=== PATIENT | male | born 1985 | race Caucasian/White ===

== ENCOUNTER 2016-05-30 20:27 | Observation (INO) | payer OTHER ==
[2016-05-30 20:29] VITALS: BMI 24.4
--- NOTE | 2016-05-30 21:07 | ED PDOC ---
Arrival/HPI - General Chief Complaint: Shortness Of Breath Time Seen by Provider: 05/30/16 20:55 Historian: Patient - History of Present Illness Narrative History of Present Illness (Text): 05/30/16 21:06 Luke Hernandez is a 30 year old male, whose past medical history includes anemia , who presents to the Emergency department sent by PMD for further evaluation and admission to the hospital. Patient with a history of continued illness since December. Patient had been diagnosed with anemia at that time for which he was admitted to [facility] for further evaluation. Patient was treated for anemia, evaluated, transfused, and discharged home. Patient on follow-up was diagnosed with possible early pneumonia and given outpatient antibiotics. Patient was feeling better for a while until recently when he began experiencing generalized malaise and cough. Patient was seen by his PMD and had an outpatient CT scan study which was significant for multiple opacities and other findings. Patient denies any fever or chills but does complaining of some occasional chest discomfort and dyspnea on exertion. Patient was referred this evening to the Emergency department for further evaluation. PMD: Dr. Brown Time/Duration: > month Symptom Onset: Gradual Symptom Course: Unchanged Activities at Onset: Rest, Light Context: Home Past Medical History - Provider Review Nursing Documentation Reviewed: Yes - Infectious Disease Hx of Infectious Diseases: None - Psychiatric Hx Substance Use: No - Anesthesia Hx Anesthesia: No Hx Anesthesia Reactions: No Hx Malignant Hyperthermia: No Family/Social History - Physician Review Nursing Documentation Reviewed: Yes Family/Social History: No Known Family HX Smoking Status: Never Smoked Hx Alcohol Use: No Hx Substance Use: No Allergies/Home Meds Allergies/Adverse Reactions: Allergies No Known Allergies Allergy (Verified 05/30/16 20:55) Review of Systems - Physician Review All systems were reviewed & negative as marked: Yes - Review of Systems Constitutional: Other (+generalized malaise) Eyes: Normal ENT: Normal Respiratory: Cough Cardiovascular: Chest Pain, MILLER Gastrointestinal: Normal. absent: Abdominal Pain, Diarrhea, Nausea, Vomiting Genitourinary Male: Normal. absent: Dysuria, Frequency, Hematuria, Urinary Output Changes Musculoskeletal: Normal. absent: Back Pain, Neck Pain Skin: Normal. absent: Rash Neurological: Normal. absent: Headache, Dizziness Endocrine: Normal Hemo/Lymphatic: Normal Psychiatric: Normal Physical Exam Vital Signs Reviewed: Yes Vital Signs Temp Pulse Resp BP Pulse Ox 05/30/16 20:44 18 05/30/16 20:29 97.9 F 89 18 127/73 100 05/30/16 20:27 98.3 F 85 16 145/88 100 Temperature: Afebrile Blood Pressure: Normal Pulse: Regular Respiratory Rate: Normal Appearance: Positive for: Well-Appearing, Non-Toxic, Comfortable Pain Distress: None Mental Status: Positive for: Alert and Oriented X 3 - Systems Exam Head: Present: Atraumatic, Normocephalic Pupils: Present: PERRL Extroacular Muscles: Present: EOMI Conjunctiva: Present: Other (Pale conjunctiva) Mouth: Present: Moist Mucous Membranes Neck: Present: Normal Range of Motion Respiratory/Chest: Present: Clear to Auscultation, Good Air Exchange. No: Respiratory Distress, Accessory Muscle Use Cardiovascular: Present: Regular Rate and Rhythm, Normal S1, S2. No: Murmurs Abdomen: Present: Normal Bowel Sounds. No: Tenderness, Distention, Peritoneal Signs Back: Present: Normal Inspection Upper Extremity: Present: Normal Inspection. No: Cyanosis, Edema Lower Extremity: Present: Normal Inspection. No: Edema Neurological: Present: GCS=15, CN II-XII Intact, Speech Normal Skin: Present: Warm, Dry, Pale. No: Rashes Psychiatric: Present: Alert, Oriented x 3, Normal Insight, Normal Concentration Medical Decision Making ED Course and Treatment: 05/30/16 21:07 Impression: 30 year old male referred for further evaluation of continued illness/ generalized malaise and cough for the past few months. Differential Diagnosis include but are not limited to: pneumonia vs. anemia Plan: -- EKG -- Chest X-ray -- Labs, blood type and screen, ABG, blood culture -- IV fluids -- Duonebs -- Reassess and disposition Prior Visits: Notes and results from previous visits were reviewed. On 05/29/2016, pt had an outpatient CT Chest performed which showed multiple bilateral pulmonary nodules as well as irregular opacitites in both lower lobes , non-specific. Consider neoplastic or infectious etiologies. Progress Notes: Reviewed EKG, NSR at 78 bpm. Sinus arrhythmia. No acute changes. 05/30/16 22:32 Reviewed radiology, Chest X-ray shows questionable left lower lobe infiltrate. 05/30/16 22:44 Reviewed labs, hgb: 7.3, hematocrit: 20.7. Will transfuse pt. Case discussed with Dr. Lr, who is aware and agrees with plan. Accepts pt in to hospitalist service. Pt will be admitted to [facility] for pneumonia and anemia. - Lab Interpretations Lab Results: 05/30/16 21:18 05/30/16 21:18 Lab Results 05/30/16 21:24: pCO2 41, pO2 88.0, HCO3 27.2, ABG pH 7.43, ABG Total CO2 28.5 H , ABG O2 Saturation 98.2 H, ABG Base Excess 2.6, ABG Potassium 3.3 L, Sodium 139.0, Chloride 107.0, Glucose 101, Lactate 0.4 L, FiO2 21.0, Arterial Blood Potassium 3.3 L 05/30/16 21:18: WBC 3.5 L, RBC 2.46 L, Hgb 7.3 L, Hct 20.7 L*, MCV 84.1, MCH 29.7, MCHC 35.3, RDW 14.8 H, Plt Count 244, MPV 9.8, PT 12.3 H, INR 1.14 H, APTT 27.5, Sodium 138, Chloride 99, Potassium 4.2, Carbon Dioxide 30, Anion Gap 13, BUN 20, Creatinine 1.1, Est GFR ( Amer) > 60, Est GFR (Non-Af Amer) > 60, Random Glucose 102, Calcium 9.0, Total Bilirubin 1.3, AST 28, ALT 31, Alkaline Phosphatase 67, Total Protein 8.4 H, Albumin 4.2, Globulin 4.3, Albumin /Globulin Ratio 1.0 L, Blood Type A POSITIVE, Antibody Screen Negative, Crossmatch See Detail, BBK History Checked No verified bt I have reviewed the lab results: Yes - RAD Interpretation Narrative RAD Interpretations (Text): Chest X-ray shows questionable left lower lobe infiltrate. Radiology Orders: 05/30/16 21:08 CHEST PORTABLE [RAD] Stat Unified Communications Architect: ED Physician, Radiologist - EKG Interpretation Interpreted by ED Physician: Yes Type: 12 lead EKG - Medication Orders Current Medication Orders: Sodium Chloride (Sodium Chloride 0.9%) 1,000 mls @ 100 mls/hr IV .Q10H JUN Last Admin: 05/30/16 21:26 Dose: 100 MLS/HR eMAR Start Stop Document 05/30/16 21:26 SB (Rec: 05/30/16 21:26 SB [id number]) Intravenous Solution Start Date 05/30/16 Start Time 21:26 End Date 05/30/16 Azithromycin (Zithromax 500mg In Ns) 250 mls @ 166.667 mls/hr IV STAT STA PRN Reason: Protocol Stop: 05/31/16 00:01 Ceftriaxone Sodium (Rocephin 1 Gram Ivpb) 100 mls @ 200 mls/hr IV ONCE STA PRN Reason: Protocol Stop: 05/30/16 23:01 Discontinued Medications Albuterol/Ipratropium (Duoneb 3 Mg/0.5 Mg (3 Ml) Ud) 3 ml IH ONCE STA Stop: 05/30/16 21:47 Last Admin: 05/30/16 21:56 Dose: 3 ML - Scribe Statement The provider has reviewed the documentation as recorded by the Shantel Baker Provider Attestation: All medical record entries made by the Silvioibe were at my direction and personally dictated by me. I have reviewed the chart and agree that the record accurately reflects my personal performance of the history, physical exam, medical decision making, and the department course for this patient. I have also personally directed, reviewed, and agree with the discharge instructions and disposition. Disposition/Present on Arrival - Present on Arrival Any Indicators Present on Arrival: No History of DVT/PE: No History of Uncontrolled Diabetes: No Urinary Catheter: No History of Decub. Ulcer: No History Surgical Site Infection Following: None - Disposition Have Diagnosis and Disposition been Completed?: Yes Diagnosis: Pneumonia, Anemia Disposition: HOSPITALIZED Disposition Time: 22:55 Patient Plan: Admission Patient Problems: Current Active Problems Problem Status Diagnosed Anemia Acute Pneumonia Acute Condition: GOOD Referrals: Dinora Brown MD [Primary Care Provider] - Follow up with primary
[2016-05-30] MEDS: Sodium Chloride 0.9% 1,000 ML IV SCH (21:26)
[2016-05-30 21:29] LABS: ARTERIAL BLOOD GAS HCO3 27.2 mmol/L (21-28); ARTERIAL BLOOD GAS PH 7.43 (7.35-7.45)
[2016-05-30] MEDS ORDERED: Albuterol-Ipratrop 3 mg / 0.5 (3 ml) UD IH STA (21:46)
[2016-05-30 21:55] LABS: MEAN CELL VOLUME 84.1 fL (80.0-105.0); MEAN CORPUSCULAR HEMOGLOBIN 29.7 pg (25.0-35.0); MEAN CORPUSCULAR HGB CONC 35.3 g/dl (31.0-37.0); MEAN PLATELET VOLUME 9.8 fl (7.0-11.0); RED CELL DISTRIBUTION WIDTH 14.8 % (11.5-14.5); WHITE BLOOD COUNT 3.5 10^3/ul (4.5-11.0)
[2016-05-30 21:56] LABS: ALKALINE PHOSPHATASE 67 U/L (38-133); ALT/SGPT 31 U/L (7-56); AST/SGOT 28 U/L (15-59); BILIRUBIN,TOTAL 1.3 mg/dL (0.2-1.3); BLOOD UREA NITROGEN 20 mg/dL (7-21); CARBON DIOXIDE 30 mmol/L (21-33); CHLORIDE 99 mmol/L (98-107); GFR AFRICAN-AMERICAN > 60; GLUCOSE,RANDOM 102 mg/dL (70-110); POTASSIUM 4.2 mmol/L (3.6-5.0); SODIUM 138 mmol/L (132-148); TOTAL PROTEIN 8.4 g/dL (5.8-8.3)
[2016-05-30 22:02] LABS: HEMATOCRIT 20.7 % (42.0-52.0)
[2016-05-30 22:05] LABS: INR 1.14 (0.93-1.08); PARTIAL THROMBOPLASTIN TIME 27.5 Seconds (23.7-30.8)
[2016-05-30] MEDS ORDERED: cefTRIAXone 1 gm 100 ML IV STA (22:32)
[2016-05-30] MEDS ORDERED: Azithromycin 500MG/NS 250ml 250 ML IV STA (22:32)
--- NOTE | 2016-05-31 00:06 | CP.PCM.HP ---
<Mor Crawford - Last Filed: 05/31/16 00:01> History of Present Illness - History of Present Illness History of Present Illness: This is a 30 yo male with past medical hx of anemia, requiring iron infusions presenting with chief complaint of shortness of breath and fatigue. Pt says symptoms began last year around November. Around that time, pt was admitted to [place] with anemia and had to be transfused. He was told that he likely had a viral infection and began seeing a preparation room manager regularly who was giving him regular iron infusions. Around this time, he was also give some abx. The symptoms of sob and fatigue gradually began to go away. In march of this year , they came back and he recently saw Dr. Brown, his family doctor who advised him to come into hospital. He says sob will only happen with exertion. He reports subjective fevers and chills. He also reports night sweats and 15 lb weight loss over the past year. He has had an intermittent chronic cough since October 2015 as well, non productive. He also reports some intermittent chest tightness. Denies urinary sx, denies bloody BMs. Denies vomiting and diarrhea. Denies syncope. Denies recent travel. Denies sick contacts. PMH: Anemia PSH: None Home meds: tylenol PRN Allergies: NKDA FH: Grandmother- COPD, heart dx Social hx: Former smoker. Denies drinking and drug use. Lives with and 2 kids. No pets. Present on Admission - Present on Admission Any Indicators Present on Admission: No History of DVT/PE: No History of Uncontrolled Diabetes: No Urinary Catheter: No Decubitus Ulcer Present: No Review of Systems - Review of Systems All systems: reviewed and no additional remarkable complaints except Review of Systems: Negative except as stated in HPI. Past Patient History - Infectious Disease Hx of Infectious Diseases: None - Tetanus Immunizations Tetanus Immunization: Unknown - Past Medical History & Family History Past Medical History?: Yes Pertinent Family History: COPD and heart dx in family - Past Social History Smoking Status: Former Smoker Chewing Tobacco Use: No Cigar Use: No Alcohol: None Drugs: Denies Home Situation {Lives}: With Family Domestic Violence: Negative - PSYCHIATRIC Hx Substance Use: No - SURGICAL HISTORY Hx Surgeries: No - ANESTHESIA Hx Anesthesia: No Hx Anesthesia Reactions: No Hx Malignant Hyperthermia: No Meds Allergies/Adverse Reactions: Allergies Allergy/AdvReac Type Severity Reaction Status Date / Time No Known Allergies Allergy Verified 05/30/16 20:55 Physical Exam - Constitutional Appears: Non-toxic, No Acute Distress - Head Exam Head Exam: ATRAUMATIC, NORMAL INSPECTION, NORMOCEPHALIC - Eye Exam Eye Exam: EOMI - ENT Exam ENT Exam: Mucous Membranes Moist - Neck Exam Neck exam: Positive for: Full Rom, Normal Inspection - Respiratory Exam Respiratory Exam: Clear to Auscultation Bilateral, NORMAL BREATHING PATTERN - Cardiovascular Exam Cardiovascular Exam: Tachycardia, +S1, +S2 - GI/Abdominal Exam GI & Abdominal Exam: Normal Bowel Sounds, Soft. absent: Tenderness - Extremities Exam Extremities exam: Positive for: normal inspection - Back Exam Back exam: NORMAL INSPECTION - Neurological Exam Neurological exam: Alert, CN II-XII Intact, Oriented x3, Reflexes Normal - Psychiatric Exam Psychiatric exam: Normal Affect, Normal Mood - Skin Skin Exam: Pallor Results - Vital Signs Recent Vital Signs: Last Vital Signs Temp 98.7 F 05/30/16 23:48 Pulse 99 H 05/30/16 23:48 Resp 18 05/30/16 23:48 BP 119/70 05/30/16 23:48 Pulse Ox 100 05/30/16 20:29 - Labs Result Diagrams: 05/30/16 21:18 05/30/16 21:18 Assessment & Plan - Assessment and Plan (Free Text) Assessment: This is a 30 yo male with past medical hx of anemia, presenting to [facility] with sob and fatigue, found to have normocytic anemia and abnormal chest CT 1. Anemia -normocytic -hematology consult -iron studies -B12/folate -peripheral blood smear -type and screen -transfuse 1 unit -f/u repeat CBC in morning 2. Questionable infiltrate on CXR/abnormal chest CT -pulm consult. recs appreciated -chest CT shows multiple nodules, irregular opacities both lower lobes, splenomegaly -azithromycin IV daily -rocephin IV daily -mono test pending -rapid flu pending -D dimer pending -tylenol PRN for fever -ID consult. recs appreciated -hepatitis panel pending -RPR negative -IVANA negative -HIV pending 3. GI/DVT ppx -SCDs -protonix Discussed with Dr. Lr <Aaliyah Lr - Last Filed: 06/11/16 04:09> Results - Vital Signs Recent Vital Signs: Last Vital Signs Temp 99.4 F 06/01/16 08:00 Pulse 86 06/01/16 08:00 Resp 18 06/01/16 08:00 BP 111/58 L 06/01/16 08:00 Pulse Ox 96 06/01/16 08:00 - Labs Result Diagrams: 06/01/16 07:30 05/31/16 06:15 Attending/Attestation - Attestation I have personally seen and examined this patient.: Yes I have fully participated in the care of the patient.: Yes I have reviewed all pertinent clinical information: Yes Notes (Text): 06/11/16 04:09 Agree with history , physical examination, assessment and plan.
[2016-05-31] MEDS: Sodium Chloride 0.9% 1,000 ML IV SCH (03:07)
[2016-05-31] MEDS ORDERED: Iodixanol 320 MG/ML 100 ML BOTTLE IV ONE (06:13)
[2016-05-31 07:32] LABS: ALKALINE PHOSPHATASE 58 U/L (38-133); ALT/SGPT 32 U/L (7-56); AST/SGOT 23 U/L (15-59); BLOOD UREA NITROGEN 16 mg/dL (7-21); CALCIUM 8.4 mg/dL (8.4-10.5); CARBON DIOXIDE 29 mmol/L (21-33); CHLORIDE 102 mmol/L (98-107); GFR AFRICAN-AMERICAN > 60; GLUCOSE,RANDOM 93 mg/dL (70-110); POTASSIUM 3.8 mmol/L (3.6-5.0); SODIUM 139 mmol/L (132-148)
--- NOTE | 2016-05-31 08:26 | CT ---
PROCEDURE: CT Chest with contrast (Pulmonary Angiogram) HISTORY: D-dimer 0.63, sob, tachycardia, pulmonary nodules. COMPARISON: CT chest 05/29/2016 TECHNIQUE: Axial computed tomography images were obtained of the chest in the pulmonary arterial phase of enhancement. Coronal and sagittal reformatted images were created and reviewed. Intravenous contrast dose: 96 mL Visipaque 320 Radiation dose: Total exam DLP = 446.33 mGy-cm. This CT exam was performed using one or more of the following dose reduction techniques: Automated exposure control, adjustment of the mA and/or kV according to patient size, and/or use of iterative reconstruction technique. FINDINGS: PULMONARY ARTERIES: Unremarkable. No pulmonary embolism. AORTA: No acute findings. No thoracic aortic aneurysm. LUNGS: Multiple pulmonary nodules, up to 10 mm in diameter. These are unchanged in size and distribution when compared the prior examination. There are irregular opacities at the lung bases, with some confluent opacity bilaterally in the posterior lower lobes. No jalil cavitation identified. In comparison to the prior examination, there is no significant change noted. Differential diagnosis includes metastatic disease although septic emboli, infection, possibly fungal or atypical mycobacterial, or inflammatory disease must be considered. PLEURAL SPACES: Unremarkable. No effusion or pneuomothorax. HEART: Unremarkable. No cardiomegaly. No significant pericardial effusion. LYMPH NODES: No lymphadenopathy. BONES, CHEST WALL: Unremarkable. No fracture or destructive lesion OTHER FINDINGS: Unremarkable. IMPRESSION: No evidence of pulmonary embolism. Multiple bilateral pulmonary nodules as well as areas of irregular opacity at the lung bases with some jalil confluent opacity. This appearance is unchanged from 05/29/2016. The etiology uncertain. Neoplastic, septic emboli, fungal or atypical mycobacterial infection or inflammatory etiology should be considered. No pleural effusion. No lymphadenopathy. Preliminary interpretation of this examination was reported by [employer] at 7:16 a.m. on 05/31/2016. There is discordance of this report with the preliminary interpretation. There is not felt to be any appreciable interval progression in disease compared to the prior examination.
[2016-05-31] MEDS: Pantoprazole 40 mg EC Tab PO SCH (08:27)
[2016-05-31 08:35] LABS: MEAN CELL VOLUME 84.7 fL (80.0-105.0); MEAN CORPUSCULAR HEMOGLOBIN 29.4 pg (25.0-35.0); MEAN CORPUSCULAR HGB CONC 34.8 g/dl (31.0-37.0); MEAN PLATELET VOLUME 10.2 fl (7.0-11.0); PLATELET COUNT 205 10^3/uL (120.0-450.0); RED CELL DISTRIBUTION WIDTH 14.6 % (11.5-14.5)
[2016-05-31 08:40] LABS: ADD MANUAL DIFF? YES
[2016-05-31 09:04] LABS: HYPOCHROMIA 2+; NEUTROPHIL 50 % (50.0-70.0); PLATELET ESTIMATE NORMAL (NORMAL); POLYCHROMASIA SLIGHT
[2016-05-31 09:05] LABS: ANISOCYTOSIS 1+; LARGE PLATELETS PRESENT; OVALOCYTES SLIGHT; POIKILOCYTOSIS SLIGHT; TEAR DROP CELLS SLIGHT
[2016-05-31] MEDS ORDERED: Azithromycin 500MG/NS 250ml 250 ML IVPB SCH (10:00)
[2016-05-31 10:08] LABS: IRON 135 ug/dL (45-180)
--- NOTE | 2016-05-31 10:18 | RAD ---
HISTORY: Cough. Technique: Single view portable semi erect @ 21:30 COMPARISON: None. FINDINGS: LUNGS: Platelike atelectasis left base. No suspicious nodules masses or infiltrates otherwise detected. PLEURA: No significant pleural effusion identified, no pneumothorax apparent. CARDIOVASCULAR: Normal. OSSEOUS STRUCTURES: No significant abnormalities. VISUALIZED UPPER ABDOMEN: Normal. OTHER FINDINGS: None. IMPRESSION: No active disease.
[2016-05-31] MEDS: cefTRIAXone 1 gm 100 ML IVPB SCH (11:12)
--- NOTE | 2016-05-31 11:31 | CT ---
PROCEDURE: CT Abdomen and Pelvis without intravenous contrast HISTORY: lung multiple nodules, anemia COMPARISON: May 31, 2016. CT thorax. TECHNIQUE: Unenhanced study. Neither oral nor intravenous contrast administered. Sensitivity and specificity for acute inflammatory processes limited by the absence of oral and intravenous contrast. Radiation dose: Total exam DLP = 626.84 mGy-cm. This CT exam was performed using one or more of the following dose reduction techniques: Automated exposure control, adjustment of the mA and/or kV according to patient size, and/or use of iterative reconstruction technique. FINDINGS: LOWER THORAX: Multiple lower lobe pulmonary nodules several which are cavitary. Finding seen with better degree of clarity on the CT of the thorax. LIVER: Unremarkable. No gross lesion or ductal dilatation. GALLBLADDER AND BILE DUCTS: Unremarkable. PANCREAS: Unremarkable. No gross lesion or ductal dilatation. SPLEEN: Splenomegaly without focal abnormality. Orthogonal measurements 10.4 x 16.0 cm. Venous varicosities confined to the left upper quadrant. No esophageal varices identified ADRENALS: Unremarkable. No mass. KIDNEYS AND URETERS: Unremarkable. No hydronephrosis. No solid mass. VASCULATURE: Unremarkable. No aortic aneurysm. BOWEL: Fecal impaction/ constipation. APPENDIX: Unremarkable. Normal appendix. PERITONEUM: Unremarkable. No free fluid. No free air. LYMPH NODES: Unremarkable. No enlarged lymph nodesMultiple sub cm mesenteric lymph nodes likely mesenteric adenitis. No pathologically enlarged lymph nodes abdomen, retroperitoneum pelvis. There is no inguinal adenopathy apparent on the current study desai desai. BLADDER: Unremarkable. REPRODUCTIVE: Unremarkable. BONES: No acute fracture. OTHER FINDINGS: None. IMPRESSION: 1. Incompletely visualize cavitary masses lower lobes bilaterally. Septic emboli/ necrotic metastatic disease should be considered. 2. Splenomegaly, left upper quadrant venous varicosities. 3. Findings consistent with mesenteric adenitis. Innumerable lymph nodes in the mesenteries common non larger than 1 cm. 4. Fecal impaction/ constipation.
[2016-05-31 13:27] LABS: FOLATE 9.9 ng/mL
--- NOTE | 2016-05-31 15:25 | US ---
HISTORY: multiple nodules COMPARISON: None. TECHNIQUE: Sonographic evaluation of the abdomen. FINDINGS: LIVER: Measures 14.9 cm. Normal echogenicity of the liver parenchyma. No mass. No intrahepatic bile duct dilatation. GALLBLADDER: Unremarkable. No gallstones. COMMON BILE DUCT: Measures 4 mm. No stones. No dilatation. PANCREAS: Unremarkable as visualized. No mass. No ductal dilatation. RIGHT KIDNEY: Measures 10.4cm. Normal echogenicity. No calculus, mass, or hydronephrosis. LEFT KIDNEY: Measures 11.5cm. Normal echogenicity. No calculus, mass, or hydronephrosis. SPLEEN: Splenomegaly. The spleen measures 16.9 cm in greatest dimension. AORTA: No aneurysmal dilatation. IVC: Unremarkable. OTHER FINDINGS: None. IMPRESSION: Splenomegaly. Otherwise unremarkable examination.
--- NOTE | 2016-05-31 15:42 | CON ---
DATE: 05/31/2016 REASON FOR CONSULTATION: Severe anemia, as well as pulmonary nodules. HISTORY OF PRESENT ILLNESS: The patient is a 30-year-old male with past medical history significant for anemia which was initially diagnosed in 11/2015 at which point patient was admitted with shortnes s of breath and fatigue to [facility]. He was transfused. Subsequently, was getting iron infusions at that point and he also had antibiotics and steroids, after which he felt much bett er and his hemoglobin also improved to 11.9. He was then lost to followup until recently and seen by my partner, Dr. Chambers, at that point and his symptoms had returned as his shortness of breath had wo rsened again and he has also lost some over 15-20 pounds in the last year. Also has been having some night sweats on and off. He saw his primary doctor for the same symptoms again last week with worse adams shortness of breath and fatigue and blood work was done as an outpatient, revealed that his hemo globin had dropped down to less than 8 again and was advised to come to the hospital. He is once aga in complaining of shortness of breath on exertion, weight loss as well as night sweats and noted to h ave pulmonary nodules mainly in the lower lobes on CT of the chest. He also has some splenomegaly bu t has never had a biopsy of his lung nodules or a bone marrow biopsy in the past. He denies any sync opal episode. No nausea, no vomiting. No diarrhea. No recent travel outside the country. No ill c ontacts. PAST MEDICAL HISTORY: As above, no surgical history. MEDICATIONS: Does not take any medications at home. ALLERGIES: No known drug allergies. FAMILY HISTORY: Noncontributory. There is no history of cancers or lymphoma or anemia in the family . REVIEW OF SYSTEMS: As per the HPI. PHYSICAL EXAMINATION: VITAL SIGNS: Reveal a temperature of 97.4, pulse of 89, respiratory rate of 16, and a blood pressure of 114/69. GENERAL: The patient is a young male lying in bed in no acute distress. HEAD AND NECK: Normocephalic, atraumatic. EYES: Pupils equal, round, reactive to light and accommodation. Extraocular muscles are intact. Th ere is marked pallor. No icterus is noted. NECK: Supple with no adenopathy, no JVD, no thyromegaly. LUNGS: Decreased breath sounds bilaterally at the bases. CARDIOVASCULAR: The S1, S2 is heard. The patient has no adventitious sounds. There are no murmurs, gallops or rubs. ABDOMEN: Positive bowel sounds, soft, nontender, nondistended. No organomegaly is palpated. EXTREMITIES: There is no edema, clubbing, or cyanosis. He has no palpable inguinal nodes. LABORATORY DATA: His labs reveal a white count of 3.0, hemoglobin 7.0, hematocrit of 21.0 and an MCV of 84.7. White count diff is also revealing some lymphocytosis. ESR is 84. Platelet count is norm al at 205. Chemistries reveal iron studies that are consistent with anemia of chronic disease. His B12 and folate levels are within normal limits. BUN and creatinine is within normal limits as are th e LFTs. He did have a hepatitis and HIV serology, which is negative. His flow cytometry has been se nt, but results are still pending. Blood gases reveal no hypoxia. His CT of the abdomen and pelvis does not reveal any lymphadenopathy. There is mild splenomegaly and his CT of the chest reveals bila teral pulmonary nodules, mainly at the bases. There is no lymphadenopathy. No other organomegaly is elicited. ASSESSMENT AND PLAN: Young male with severe anemia, leukopenia, as well as lymphocytosis, marked spl enomegaly, multiple lung nodules. Will need a bone marrow biopsy as well as possible lung nodule bio psy to rule out lymphoma in this young male. He will also need a complete gastrointestinal workup on ce he is more stable. I have discussed the above with the patient as well as his family and Dr. Christine draper, who is the primary. The patient will get a bone marrow biopsy done tomorrow morning. We will al so reach out to Dr. Zay Rivers for a possible lung nodule biopsy. Thank you for the consult. We will follow. Eric Boles MD cc: [id number] TT: 05/31/2016 15:42:17 Confirmation # [id number] Dictation # [id number]
--- NOTE | 2016-05-31 17:36 | US ---
HISTORY: Leg pain and swelling. Evaluate for DVT PHYSICIAN(S): Zay Rivers MD. TECHNIQUE: Duplex sonography and color-flow Doppler with graded compression were used to evaluate the deep venous systems of both lower extremities. FINDINGS: The visualized deep venous systems of both lower extremities are sonographically normal and compressible. Normal wave forms and augmentation are seen. There is no sonographic evidence for deep venous thrombosis in the visualized segments of both lower extremities. IMPRESSION: No sonographic evidence for deep venous thrombosis in the visualized segments of both lower extremities.
--- NOTE | 2016-05-31 18:05 | CARD ---
APPROVED REPORT EKG Measurement Heart [id number] <Conclusion> Normal sinus rhythm with sinus arrhythmia Normal ECG
--- NOTE | 2016-05-31 18:22 | CP.PCM.CON ---
History of Present Illness - History of Present Illness History of Present Illness: 30 year old male with PMH of chronic anemia came in to [facility] after seeing his primary care doctor for worsening fatigue. He states that he has been on treatment for his anemia since November 2015. He states that he got transfusions then and felt better. He underwent work up which apparently showed few pulmonary nodules and was being observed. About 2 weeks ago, he complained to his PMD for cough and easy fatigability and shome shortness of breath and after work up he was treated with antibiotics for possible pneumonia. Despite the antibiotics he did not feel better. He has also been complaining of about a 10-15 pound wieght loss over a year and night sweats for about a month now. His cough has been dry, no hemoptysis, no sputum production, has occasional subjective fevers and chills, no nausea or vomiting, no chest pain, no headache or dizziness, no abdominal pain, no diarrhea, no dysuria. He states that his last travel outside of the country was 17 years ago to [place]. He had a skin PPD done 17 years ago which was apparently negative. He is born and raised in the [facility] and denies having family members or anyone living with him with tuberculosis. In the ED, CT chest shows bilateral pulmonary nodules and Infectious diseases consult is requested to further evaluate and manage. Review of Systems - Review of Systems All systems: reviewed and no additional remarkable complaints except (as per HPI ) Past Patient History - Infectious Disease Hx of Infectious Diseases: None - Past Medical History & Family History Past Medical History?: Yes Pertinent Family History: COPD and heart disease in the family - Past Social History Smoking Status: Former Smoker Alcohol: Occasional Drugs: Denies Home Situation {Lives}: With Family - PSYCHIATRIC Hx Substance Use: No - SURGICAL HISTORY Hx Surgeries: No - ANESTHESIA Hx Anesthesia: No Hx Anesthesia Reactions: No Hx Malignant Hyperthermia: No Meds Allergies/Adverse Reactions: Allergies Allergy/AdvReac Type Severity Reaction Status Date / Time No Known Allergies Allergy Verified 05/30/16 20:55 - Medications Medications: Current Medications Acetaminophen (Tylenol 325mg Tab) 650 mg PO Q6H PRN PRN Reason: Fever >100.4 F Sodium Chloride (Sodium Chloride 0.9%) 1,000 mls @ 100 mls/hr IV .Q10H JUN Last Admin: 05/30/16 21:26 Dose: 100 mls/hr Azithromycin (Zithromax 500mg In Ns) 250 mls @ 166.667 mls/hr IV STAT STA PRN Reason: Protocol Stop: 05/31/16 00:01 Azithromycin (Zithromax 500mg In Ns) 250 mls @ 167 mls/hr IVPB DAILY JUN PRN Reason: Protocol Physical Exam - Constitutional Appears: Non-toxic, No Acute Distress - Head Exam Head Exam: NORMAL INSPECTION - ENT Exam ENT Exam: Mucous Membranes Moist - Neck Exam Neck exam: Negative for: Lymphadenopathy, Meningismus - Respiratory Exam Respiratory Exam: Decreased Breath Sounds, Rales (at the bases) - Cardiovascular Exam Cardiovascular Exam: +S1, +S2 - GI/Abdominal Exam GI & Abdominal Exam: Soft. absent: Tenderness Results - Vital Signs Recent Vital Signs: Last Vital Signs Temp 97.9 F 05/30/16 20:29 Pulse 89 05/30/16 20:29 Resp 18 05/30/16 20:44 BP 127/73 05/30/16 20:29 Pulse Ox 100 05/30/16 20:29 - Labs Result Diagrams: 05/31/16 08:15 05/31/16 06:15 Assessment & Plan - Assessment and Plan (Free Text) Plan: Assessment Bilateral pulmonary nodules in a patient with chronic anemia, splenomegaly and mesenteric lymph nodes R/O lymphoma; the CT abdomen and pelvis reading was multiple caivtary lesions at the lung bases but these are not evident on the more accurate CT of the chest (i.e. there are no cavitary lesions); there are no mediastinal lymph nodes and the distribution of the pulmonary nodules make tuberculosis unlikely; will rule out fungal infections such as Histoplasmosis ( although he has not had travel to Histoplasma areas), R/O autoimmune diseases such as Dez's; patient may also have bacterial pneumonia Plan Started patient on Rocephin and Zithromax; follow up blood cx, PCT; will order Quantiferon test, beta glucan test, urine histoplasma antigen, HIV test Reviewed Heme/Onc recommendations and will follow up plan for pulmonary nodule biopsy Will follow clinically
[2016-05-31 19:47] VITALS: PULSE 86
[2016-05-31] MEDS: Fluticasone Nasal 50 mcg/Spray NS SCH (23:49)
--- NOTE | 2016-06-01 02:11 | PN ---
DATE: 05/31/2016 SUBJECTIVE: A 30-year-old male came in because of cough and dyspnea and severe anemia. The patient seen by oncologist today. The patient clinically seems stable. on the bedside. The patient lying in bed, comfortable. PHYSICAL EXAMINATION: VITAL SIGNS: Temperature 98.4, heart rate 86, blood pressure 109/64, respiration 20. HEAD AND NECK: Normal. No JVD. No thyromegaly. CHEST: Clear, good air entry. CARDIAC: First and second sounds are normal. ABDOMEN: Soft, obese, nontender. EXTREMITIES: No edema. SCDS on both legs. NEUROLOGIC: Normal. LABORATORY DATA: White count 3, hemoglobin 7.3, hematocrit 21, platelets 205. Chemistry noted for sodium 139, potassium 3.8, chloride 102, bicarbonate 29, BUN 16, creatinine 0.9. The patient has also liver function test, which is normal. Also, have transferrin 148.9, which is low. The patient also had a stool guaiac test which is negative. He also has a PT and PTT is normal and he has multiple hepatitis A, B, C, which is negative. HIV 1 and 2 antibody screen which is negative and also urinary renal failure antigen which is negative. The patient, next, has a CT which shows multiple nodules. CT angiogram multiple nodules, clavicular lesion in the bases. IMPRESSION AND PLAN: 1. Severe anemia. The patient has a history of iron deficiency anemia, multiple transfusions. Etiology is unclear. 2. Possible community-acquired pneumonia. ID consult, Dr. Lamas___. The patient will continue Rocephin, Zithromax. 3. The patient does have multiple lung nodules, could be metastatic disease plus anemia.splenomegaly We will get a bone marrow biopsy tomorrow as per Dr. Boles the onclogist on the case,, the differential lymphoma is on top of the list. Also, Dr. Keene will see the patient's pulmonary consult Will continue current treatment. lung biobsy considered for pulmonary nodule, waggners granulomatosis is considered but underlying malignancy should be ruled out. Will follow up with other library consultant Asa Salinas MD cc: [phone] TT: 06/01/2016 02:10:24 Confirmation # [id number] Dictation # [id number] farzad BRENNER
--- NOTE | 2016-06-01 03:23 | CON ---
DATE: 05/31/2016 REFERRING PHYSICIAN: Dr. Tellez. REASON FOR CONSULT: Lung nodule, cough, shortness of breath. HISTORY OF PRESENT ILLNESS: This is a 30-year-old male with known history of anemia requiring iron t ransfusion in the past. Also, has rhinitis, postnasal drip, and cough. CAT scan of the chest was do ne, which shows bilateral nodules, which is subcentimeters. No nausea, no vomiting, diarrhea. No le g pain or leg swelling. PAST MEDICAL HISTORY: Significant for severe anemia requiring iron transfusion. ALLERGIES: None known. SOCIAL HISTORY: No history of smoking or alcohol use. FAMILY HISTORY: Positive for diabetes, hypertension, sleep apnea syndrome. MEDICATIONS: He is on Colace 100 mg 3 times a day, Protonix 40 mg daily, Rocephin 1 g daily, IV flui d normal saline 100 mL per hour, Tylenol p.r.n. basis, Zithromax 500 mg daily. REVIEW OF SYSTEMS: No headache. Has some rhinitis, postnasal drip, cough, sputum production. No ch est pain, no nausea, no vomiting, diarrhea. No leg pain or leg swelling. PHYSICAL EXAMINATION: GENERAL: Lying in the bed in no acute distress. VITAL SIGNS: Temp is 98, heart rate is 86, respiratory rate is 20, blood pressure 109/64, pulse ox 1 00% on room air. HEENT: Moist mucous membranes. No ulcer or oral thrush noted. Maxillary area, no tenderness. LUNGS: Has a few scattered rhonchi. HEART: S1, S2. ABDOMEN: Soft, nontender. No organomegaly. EXTREMITIES: No edema. NEUROLOGIC: Awake, alert, follows simple commands. LABORATORY DATA: Shows hemoglobin 7.3, hematocrit 21.0, WBC 3.0, platelet is 205. Sed rate is 84. INR is 1.14, PTT is 27. D-dimer is 0.63. Has blood gases done, which shows pH 7.43, pCO2 of 41, O2 88. Sodium 139, potassium 3.8, chloride 102, bicarbonate 29, BUN 16, creatinine 0.9, glucose 93, ken cium 8.4. Iron is 134. Transferrin 148. Ferritin 245, AST 23, ALT 32, alkaline phosphatase is 58. LDH is 565, albumin is 3.5. Microbiology: Blood cultures no growth. CAT scan of the chest is done in ER, which shows no evidence of pulmonary embolism, multiple bilateral pulmonary nodules. Has an ultrasound of the lower extremities, which shows no DVT. IMPRESSION AND PLAN: Bilateral pulmonary nodules, severe anemia. Also has rhinitis, postnasal drip, and cough. I think his main issue is anemia. Need to figure out what is going on with his bone mar row. Will benefit from bone marrow biopsy and anemia workup. Also agree with infectious disease's w orkup including Quantiferon Gold TB test, HIV test. Continue antibiotics for now. Add Singulair 10 mg at bedtime, Flonase 1 spray each nostril twice a day, inhaled bronchodilator. At this time, lung nodule will be hard to reach, is a small nodule. We may find onset in bone marrow biopsy. I spoke to patient's family at bedside. All the questions answered. Sid Keene MD cc: [id number] TT: 06/01/2016 03:22:29 Confirmation # [id number] Dictation # [id number] mn
[2016-06-01] MEDS: Pantoprazole 40 mg EC Tab PO SCH (06:23)
[2016-06-01 09:01] VITALS: BP 111/58; RESP 18; TEMP 99.4; O2SAT 96
[2016-06-01] MEDS ORDERED: Lidocaine 1% Inj (20ml) ONE (09:27)
[2016-06-01] MEDS ORDERED: Lidocaine 1% Inj (20ml) IJ STA (09:29)
[2016-06-01] MEDS: cefTRIAXone 1 gm 100 ML IVPB SCH (11:25)
[2016-06-01 11:26] LABS: HEMATOCRIT 25.5 % (42.0-52.0); MEAN CELL VOLUME 85.6 fL (80.0-105.0); MEAN CORPUSCULAR HEMOGLOBIN 29.5 pg (25.0-35.0); MEAN CORPUSCULAR HGB CONC 34.5 g/dl (31.0-37.0); MEAN PLATELET VOLUME 10.2 fl (7.0-11.0); RED CELL DISTRIBUTION WIDTH 14.8 % (11.5-14.5); WHITE BLOOD COUNT 3.3 10^3/ul (4.5-11.0)
[2016-06-01] MEDS: Fluticasone Nasal 50 mcg/Spray NS SCH (11:26)
[2016-06-01] MEDS ORDERED: Oxycodone/Acetaminophen 10/325 mg Tab PO STA (11:37)
[2016-06-01 12:25] LABS: EPSTEIN-BARR VCA AB IGG <0.91 (<0.91); EPSTEIN-BARR VCA AB IGM <0.91 (<0.91)
--- NOTE | 2016-06-01 14:10 | PROCN ---
DATE: 06/01/2016 A bone marrow aspiration and biopsy was done on the right posterior superior iliac spine. Specimen o btained for morphology, flow cytometry as well as cytogenetics. Procedure was explained to patient a nd informed consent signed and no complications were observed. No bleeding, no pain. We will follow up results next week. Eric Boles MD cc: [id number] TT: 06/01/2016 14:09:23 Confirmation # [id number] Dictation # [id number] en
--- NOTE | 2016-06-01 16:04 | CON ---
DATE: 06/01/2016 REQUEST FOR CONSULT: For iron deficiency anemia. Seen and examined at the bedside earlier today. The chart was reviewed. HISTORY OF PRESENT ILLNESS: This is a 30-year-old male with a past medical history of anemia, iron d eficiency anemia who initially was admitted at [facility] back in 11/2015 with compla ints of shortness of breath and fatigue. The patient was transfused and was receiving iron infusions and also at that time he had a viral infection and was placed on antibiotics and steroids. The delfino ent did improve as well as his hemoglobin. Then in 03/2016 the patient came back and saw his family doctor, Dr. Brown, who advised him to come to the hospital. He does complain of shortness of breath on exertion and does complain of some chills as well as night sweats and a weight loss of about 15 po unds over the year. He also has intermittent cough since 10/2015. Denies any change in bowel habits or any blood in the stool. Denies any nausea or vomiting. No recent sick contacts or travel. The patient has never had an endoscopy or colonoscopy. PAST MEDICAL HISTORY: As stated above, iron deficiency anemia. PAST SURGICAL HISTORY: Denies. ALLERGIES: No known drug allergies. FAMILY HISTORY: Grandmother with heart disease and COPD. SOCIAL HISTORY: The patient was a former smoker. Denies any ETOH or drug use. REVIEW OF SYSTEMS: Systems reviewed with positive findings, see HPI. MEDICATIONS: Reviewed as per MAR. VITAL SIGNS: Temperature is 99.4, blood pressure is 111/58, pulse rate 86, respirations 18, 96 on ro om air. LABORATORY DATA: WBC is 3.3, his H and H are 8.8 and 25.5, platelets are 202. He is status post 2 u nits of packed RBCs. PT from 05/30/2016 is 12.3, INR is 1.14, PTT 27.5. He had a D-dimer done; it w as 0.63. Iron study is 135, TIBC is 204, percent saturation is 66, transferrin level is 148.99 (it i s low), the ferritin level is 245.0. He had CRP level done; it was greater than 15.0. Alpha fetopro tein was done; it was 1.1. B12 was 431. He had a folate done at 9.9 that was okay. IMAGING: Had an abdominal ultrasound to follow up nodules and this showed splenomegaly. The common bile duct measured 4 mm, no stones, no dilatation. Gallbladder was unremarkable. The liver was norm al; no mass, no intrahepatic dilatation. Pancreas unremarkable. The CAT scan of abdomen and pelvis showed splenomegaly. There were multiple lower lobe pulmonary nod ules. Liver, gallbladder and pancreas were unremarkable. Bowel: There is fecal impaction and const ipation. Appendix unremarkable. Lymph nodes: No enlarged lymph nodes, multiple subcentimeter mesen teric lymph nodes, likely mesenteric adenitis. No pathologically enlarged lymph nodes in the abdomen , retroperitoneum and pelvis, no inguinal adenopathy. Also, he had a chest CT and there was no evidence of PE. Multiple bilateral pulmonary nodules as wel l as areas of ____ opacity at the lung base with some jalil confluent opacity. This appearance is un changed from 05/29/2016 ____. The etiology is uncertain. Neoplastic septic emboli, fungal or atypic al mycobacterial infection or inflammatory etiology should be considered. No pleural effusion or lym phadenopathy. PHYSICAL EXAMINATION: HEENT: Sclerae are anicteric. NECK: Supple CARDIAC: S1, S2. LUNGS: With clear breath sounds. No rales or wheeze. ABDOMEN: With bowel sounds. Soft, nondistended, nontender on palpation. No rebound, guarding, or o rganomegaly. EXTREMITIES: Positive pedal pulses, no edema. NEUROLOGIC: Awake, alert, and oriented. ASSESSMENT: This is a 30-year-old male with history of anemia, history of iron deficiency anemia, ca me with shortness of breath and fatigue, found to have low hemoglobin with unclear etiology. The pat ient has multiple lung nodes. He also has splenomegaly. Rule out any differentials, are ruling out any lymphoma or any other underlying malignancy. PLAN: The patient is having bone marrow biopsy done with Dr. Boles today. He also had constipation ; he is on bowel regimen. Continue the GI prophylaxis. He is for CT-guided lung biopsy on [address] Rivers. Continue to monitor H and H. The patient may benefit from a GI workup after review of the findings. We can consider a GI workup after review of biopsies. Thank you for this consult and for allowing us to participate in your patient's care. Will make furt her recommendations based upon patient's clinical course. The patient was seen and case discussed [facility] Dr. Tellez. Mercedes GARCÍA cc: [id number] TT: 06/01/2016 16:03:15 Confirmation # [id number] Dictation # [id number] mn
--- NOTE | 2016-06-01 20:57 | CP.PCM.PN ---
Subjective - Date & Time of Evaluation Date of Evaluation: 06/01/16 Time of Evaluation: 10:30 - Subjective Subjective: Patient is feeling a little better, no fevers overnight, a little less cough compared to before admission. Had bone marrow biopsy done today. Objective - Vital Signs/Intake and Output Vital Signs (last 24 hours): Temp Pulse Resp BP Pulse Ox 99.4 F 86 18 111/58 L 96 06/01/16 08:00 06/01/16 08:00 06/01/16 08:00 06/01/16 08:00 06/01/16 08:00 Intake and Output: 06/01/16 06/02/16 18:59 06:59 Intake Total 480 Balance 480 - Labs Labs: 06/01/16 07:30 05/31/16 06:15 PT 12.3 Seconds (9.9-11.8) H 05/30/16 21:18 INR 1.14 (0.93-1.08) H 05/30/16 21:18 APTT 27.5 Seconds (23.7-30.8) 05/30/16 21:18 - Constitutional Appears: Non-toxic, No Acute Distress - Head Exam Head Exam: NORMAL INSPECTION - Neck Exam Neck Exam: absent: Lymphadenopathy, Meningismus - Respiratory Exam Respiratory Exam: Decreased Breath Sounds - Cardiovascular Exam Cardiovascular Exam: +S1, +S2 - GI/Abdominal Exam GI & Abdominal Exam: Soft. absent: Tenderness Assessment and Plan - Assessment and Plan (Free Text) Plan: Assessment Bilateral pulmonary nodules in a patient with chronic anemia, splenomegaly and mesenteric lymph nodes R/O lymphoma S/P bone marrow biopsy today; the CT abdomen and pelvis reading was multiple caivtary lesions at the lung bases but these are not evident on the more accurate CT of the chest (i.e. there are no cavitary lesions); there are no mediastinal lymph nodes and the distribution of the pulmonary nodules make tuberculosis unlikely; will rule out fungal infections such as Histoplasmosis (although he has not had travel to Histoplasma areas), R/O autoimmune diseases such as Dez's; patient may also have bacterial pneumonia Plan on Rocephin and Zithromax day 2; blood cx negative, PCT < 0.5; follow up Quantiferon test, beta glucan test, urine histoplasma antigen, HIV test follow up results of the bone marrow biopsy
[2016-06-07 04:36] LABS: (1-3)-B-D GLUCAN < 31 pg/mL (())
== END 2016-06-01 15:50 | disposition home or self-care (01) ==
LOC: ED 20:27 → ERH 22:47 → INTOOBSV 22:47 → ERH 23:42 → 5RSO 05-31 00:40
PROVIDERS: ADMIT Internal Medicine; ATTEND Internal Medicine
DX: D50.9 Iron deficiency anemia, unspecified (principal); J18.9 Pneumonia, unspecified organism; R16.1 Splenomegaly, not elsewhere classified; J31.0 Chronic rhinitis; R09.82 Postnasal drip; R91.1 Solitary pulmonary nodule; D72.820 Lymphocytosis (symptomatic); D72.819 Decreased white blood cell count, unspecified; Z87.891 Personal history of nicotine dependence; Z82.49 Family history of ischemic heart disease and other diseases of the circulatory system; Z82.5 Family history of asthma and other chronic lower respiratory diseases; Z83.3 Family history of diabetes mellitus
CPT/HCPCS: 36415; 36430; 36600; 38221; 71010; 71275; 74176; 76700; 80053; 80074; 82105; 82607; 82728; 82746; 82803; 83540; 83615; 84145; 84466; 85025; 85027; 85378; 85610; 85651; 85730; 86021; 86039; 86140; 86308; 86480; 86664; 86665; 86698; 86703; 86850; 86900; 86920; 87040; 87086; 87449; 93005; 93970; 94640; 96361; 96365; 96375; 96376; 99285; G0328; G0378; J0456; J0696; J7040; P9016; Q9967

== ENCOUNTER 2016-07-09 07:48 | Observation (INO) | payer OTHER ==
[2016-07-09 08:11] VITALS: BMI 24.8
--- NOTE | 2016-07-09 08:44 | ED PDOC ---
Arrival/HPI - General Historian: Patient - History of Present Illness Time/Duration: > month Symptom Onset: Gradual Symptom Course: Unchanged - General Chief Complaint: Weakness/Neurological Deficit Time Seen by Provider: 07/09/16 08:16 - History of Present Illness Narrative History of Present Illness (Text): 30M with pmh of anemia presents to the emergency department with cough, shortness of breath, fevers. Pt states that all his symptoms first started last November. He states that his cough is worse in past 4 days and productive with yellow phlegm. He states that he has been to [facility] for work up of anemia and transfusion. He also complains of chest tightness and shortness of breath that is present with the cough. He denies any headache, dizziness, +f/c, chest pain, abd pain, n/v/d, urinary or bm changes. PMD: Dr Salinas Heme/Onc: [facility]) Past Medical History - Provider Review Nursing Documentation Reviewed: Yes - Infectious Disease Hx of Infectious Diseases: None - Tetanus Immunization Tetanus Immunization: Unknown - Cardiac Hx Cardiac Disorders: No - Pulmonary Hx Respiratory Disorders: No - Neurological Hx Neurological Disorder: No - HEENT Hx HEENT Disorder: No - Renal Hx Renal Disorder: No - Endocrine/Metabolic Hx Endocrine Disorders: No - Hematological/Oncological Hx Anemia: Yes Hx Blood Transfusions: Yes - Musculoskeletal/Rheumatological Hx Falls: No - Psychiatric Hx Psychophysiologic Disorder: No Hx Substance Use: No - Anesthesia Hx Anesthesia: No Hx Anesthesia Reactions: No Hx Malignant Hyperthermia: No Family/Social History - Physician Review Nursing Documentation Reviewed: Yes Family/Social History: CAD/NC (grandmother ) Smoking Status: Former Smoker Hx Alcohol Use: No Hx Substance Use: No Allergies/Home Meds Allergies/Adverse Reactions: Allergies No Known Allergies Allergy (Verified 07/09/16 08:11) Home Medications: Home Meds Medication Instructions Recorded Confirmed No Known Home Med 07/09/16 07/09/16 Review of Systems - Physician Review All systems were reviewed & negative as marked: Yes - Review of Systems Constitutional: Fevers Respiratory: SOB, Cough Cardiovascular: Chest Pain Physical Exam Vital Signs Reviewed: Yes Temperature: Afebrile Blood Pressure: Normal Pulse: Regular Respiratory Rate: Normal Appearance: Positive for: Well-Appearing, Non-Toxic, Comfortable Mental Status: Positive for: Alert and Oriented X 3 - Systems Exam Head: Present: Atraumatic, Normocephalic Pupils: Present: PERRL Extroacular Muscles: Present: EOMI Conjunctiva: Present: Normal Mouth: Present: Moist Mucous Membranes Nose (Internal): Present: Normal Inspection Neck: Present: Normal Range of Motion Respiratory/Chest: Present: Clear to Auscultation, Good Air Exchange, Decreased Breath Sounds. No: Respiratory Distress, Accessory Muscle Use, Wheezes, Rales, Rhonchi Cardiovascular: Present: Regular Rate and Rhythm, Normal S1, S2. No: Murmurs Abdomen: Present: Normal Bowel Sounds. No: Tenderness, Distention, Peritoneal Signs Upper Extremity: Present: Normal Inspection. No: Cyanosis, Edema Lower Extremity: Present: Normal Inspection. No: Edema, CALF TENDERNESS Neurological: Present: GCS=15, CN II-XII Intact, Speech Normal Skin: Present: Warm, Dry, Normal Color. No: Rashes Psychiatric: Present: Alert, Oriented x 3, Normal Insight, Normal Concentration Vital Signs Temp Pulse Resp BP Pulse Ox 07/09/16 09:27 88 16 120/65 100 07/09/16 08:06 98.1 F 88 18 111/72 100 Medical Decision Making ED Course and Treatment: Patient seen and examined with resident. Came up with treatment and disposition plan with resident. (Delvis Lanier) Impression: 30M with pmh of anemia presents to the emergency department with cough, shortness of breath, fevers. Differential Diagnosis included but are not limited to: Pneumonia / anemia Plan: - CBC, CMP, - Anemia work up - Reassess and disposition Prior Visits: Notes and results from previous visits were reviewed. On 05/31/16 patient came in complaining of similar symptoms Progress Notes: 07/09/16 08:35 Dr Lanier spoke to Dr Salinas which will admit to his service. Pt with known history of anemia with transfusions - further workup of lung biopsy. 07/09/16 08:51 Pt resting comfortably in bed. No complaints. 07/09/16 10:[address] Salinas which will admit the pt for obs for further anemia work up. 07/09/16 10:28 EKG: Ordered, reviewed, and independently interpreted the EKG. Rate : 84 BPM Rhythm : NSR Interpretation : No ST-segment elevations or depressions, no T-wave inversions, normal intervals. Comparison : No previous EKG for comparison. (Raminfar,Adis) - Lab Interpretations Lab Results: 07/09/16 09:00 07/09/16 09:00 Lab Results 07/09/16 09:00: Iron 202 H, TIBC 227 L, % Saturation 89 H 07/09/16 09:00: Blood Type A POSITIVE, Antibody Screen Negative, BBK History Checked Patient has bt 07/09/16 09:00: Sodium 139, Potassium 4.2, Chloride 101, Carbon Dioxide 29, Anion Gap 13, BUN 17, Creatinine 0.8, Est GFR ( Amer) > 60, Est GFR (Non- Af Amer) > 60, Random Glucose 91, Calcium 9.4, Ferritin Pending, Total Bilirubin 1.2, AST 27, ALT 33, Alkaline Phosphatase 67, Lactate Dehydrogenase 720 H, Total Creatine Kinase 82, Troponin I < 0.01, Total Protein 8.9 H, Albumin 4.4, Globulin 4.5, Albumin/Globulin Ratio 1.0 L, Vitamin B12 Pending, Folate Pending 07/09/16 09:00: WBC 3.8 L, RBC 3.22 L, Hgb 9.4 L, Hct 27.3 L, MCV 84.8, MCH 29.2 , MCHC 34.4, RDW 14.0, Plt Count 245, MPV 10.0, Gran % 61.6, Lymph % (Auto) 30.9 , [place] % (Auto) 6.1 H, Eos % (Auto) 1.1 L, Baso % (Auto) 0.3, Gran # 2.31, Lymph # 1.2, [place] # 0.2, Eos # 0.0, Baso # 0.01 - RAD Interpretation Radiology Orders: 07/09/16 08:50 CHEST PORTABLE [RAD] Stat - PA / [employer]QU[employer] SALES REPRESENTATIVE / Resident Statement / has reviewed & agrees with the documentation as recorded. / has examined the patient and agrees with the treatment plan. Disposition/Present on Arrival - Present on Arrival Any Indicators Present on Arrival: No History of DVT/PE: No History of Uncontrolled Diabetes: No Urinary Catheter: No History of Decub. Ulcer: No History Surgical Site Infection Following: None - Disposition Have Diagnosis and Disposition been Completed?: Yes Disposition Time: 08:30 Patient Plan: Observation - Disposition Diagnosis: Anemia Disposition: HOSPITALIZED Patient Problems: Current Active Problems Problem Status Onset Anemia Acute Condition: IMPROVED
[2016-07-09 09:09] LABS: ADD MANUAL DIFF? NO
[2016-07-09 09:11] LABS: BASO # 0.01 K/mm3 (0.0-2.0); BASO % 0.3 % (0.0-3.0); EOS % 1.1 % (1.5-5.0); GRAN # 2.31 (1.4-6.5); GRAN % 61.6 % (50.0-68.0); HEMATOCRIT 27.3 % (42.0-52.0); LYMPH # 1.2 (1.2-3.4); LYMPH % 30.9 % (22.0-35.0); MEAN CELL VOLUME 84.8 fL (80.0-105.0); MEAN CORPUSCULAR HEMOGLOBIN 29.2 pg (25.0-35.0); MEAN CORPUSCULAR HGB CONC 34.4 g/dl (31.0-37.0); MONO # 0.2 (0.1-0.6); MONO % 6.1 % (1.0-6.0); PLATELET COUNT 245 10^3/uL (120.0-450.0); WHITE BLOOD COUNT 3.8 10^3/ul (4.5-11.0)
[2016-07-09 09:25] LABS: ALKALINE PHOSPHATASE 67 U/L (38-133); ALT/SGPT 33 U/L (7-56); AST/SGOT 27 U/L (15-59); BILIRUBIN,TOTAL 1.2 mg/dL (0.2-1.3); BLOOD UREA NITROGEN 17 mg/dL (7-21); CALCIUM 9.4 mg/dL (8.4-10.5); CARBON DIOXIDE 29 mmol/L (21-33); CHLORIDE 101 mmol/L (98-107); GFR AFRICAN-AMERICAN > 60; GLUCOSE,RANDOM 91 mg/dL (70-110); POTASSIUM 4.2 mmol/L (3.6-5.0); SODIUM 139 mmol/L (132-148); TOTAL PROTEIN 8.9 g/dL (5.8-8.3)
[2016-07-09 09:31] LABS: IRON 202 ug/dL (45-180)
[2016-07-09 09:40] LABS: TROPONIN I < 0.01 ng/mL
--- NOTE | 2016-07-09 10:06 | RAD ---
HISTORY: sob COMPARISON: No prior. FINDINGS: LUNGS: No active pulmonary disease. PLEURA: No significant pleural effusion identified, no pneumothorax apparent. CARDIOVASCULAR: Normal. OSSEOUS STRUCTURES: No significant abnormalities. VISUALIZED UPPER ABDOMEN: Normal. OTHER FINDINGS: None. IMPRESSION: No active disease.
[2016-07-09] MEDS ORDERED: Sodium Chloride 0.9% 1,000 ML IV SCH (10:45)
[2016-07-09] MEDS ORDERED: Albuterol-Ipratrop 3 mg / 0.5 (3 ml) UD IH PRN (12:43)
[2016-07-09] MEDS ORDERED: Midazolam 2 MG/2 ML VIAL ONE (14:45)
[2016-07-09] MEDS ORDERED: Oxycodone/Acetaminophen 5/325 mg Tab PO PRN (15:39)
[2016-07-09] MEDS ORDERED: Sodium Chloride 0.45% 1,000 ML IV SCH (15:45)
[2016-07-09 17:58] LABS: FOLATE 11.4 ng/mL
[2016-07-09] MEDS ORDERED: Peg-Electrolyte Oral Soln 4L (Golytely) PO STA (18:24)
[2016-07-09] MEDS: Dextrose 5%/0.9% NS 1,000 ML IV SCH (18:31)
--- NOTE | 2016-07-09 20:25 | CT ---
PROCEDURE: CT guided left lower lobe lung biopsy. HISTORY: Multiple bilateral cavitary lung nodules. Evaluate for infection versus malignancy. PHYSICIAN(S): Zay Rivers MD. TECHNIQUE: The relative risks and indications of the procedure were explained to the patient and consent obtained. The patient was placed prone on the CT scanner and preliminary images through the lung bases obtained. Conscious sedation and monitoring were provided throughout the procedure by a nurse. There are multiple cavitary opacities in the lower lobes bilaterally.. 2.5 cm cavitary nodule at the left base posteriorly was selected for biopsy. A left posterior approach was selected and the area prepped and draped in the usual sterile fashion. 1% Xylocaine was used to anesthetize the skin and soft tissues. A in gauge guiding needle was advanced into the 2.5 cm cavitary nodule at the left lung base posteriorly.. Its position was confirmed with CT. Using coaxial technique, multiple core biopsies were obtained. The postprocedure images show no evidence of large pneumothorax or significant hemorrhage.. IMPRESSION: 1. CT-guided eft lower lobe lung biopsy as described above. Specimens were sent for histology and microbiology.
[2016-07-09] MEDS ORDERED: Bisacodyl 5mg EC Tab PO STA (20:27)
[2016-07-09] MEDS ORDERED: Magnesium Citrate Oral SOL (300 ml) PO STA (20:29)
--- NOTE | 2016-07-10 | CON ---
DATE: 07/09/2016 REFERRING PHYSICIAN: Dr. Salinas. REASON FOR ADMISSION: Cough, shortness of breath, lung nodule, already had a lung biopsy. HISTORY OF PRESENT ILLNESS: This is a 30-year-old gentleman with past medical history significant fo r anemia diagnosed about last year in November. Since then, had multiple blood transfusions. Had a bon e marrow biopsy done. Being followed by Dr. Boles as an outpatient from hematology point of view. According to Dr. Boles, bone marrow was unremarkable. Also has seen infectious disease at his last admission. He had a TB Gold test done, which was told from Dr. Salinas's office it is indeterminate. The last 3 or 4 days now, having runny nose, stuffy nose, cough, sputum production. According to gisela anglin, he has been having low grade fevers from the last several months or so. It goes up to 100, and after sweating, becomes afebrile. There is no significant weight loss. No hemoptysis, no hematemes is, no hematuria, no diarrhea, no leg swelling reported. PAST MEDICAL HISTORY: Significant for lung nodules, anemia, splenomegaly, multiple blood transfusion s. SOCIAL HISTORY: He is a college student. Former smoker. FAMILY HISTORY: Positive for chronic lung disease, coronary artery disease, RI. ALLERGIES: None known. MEDICATIONS: Home medications are none. Presently on IV fluid D5 normal saline 75 mL per hour, Dulco lax on p.r.n. basis, DuoNeb q. 4 hours p.r.n., Percocet 5/325 one tab q. 4 hours p.r.n., Tylenol p.r. n., Zofran p.r.n. REVIEW OF SYSTEMS: No headache. Has some rhinitis, postnasal drip, cough, sputum production, low-gr hannah fever. No abdominal pain. No diarrhea. No dysuria. No leg pain or leg swelling. PHYSICAL EXAMINATION: GENERAL: Lying in the bed, in no acute distress. VITAL SIGNS: Temp is 98, heart rate is 90, respiratory rate is 20, blood pressure 121/75, pulse ox 9 8% on room air. HEENT: Moist mucous membranes. Nasal mucosa looks okay. No facial tenderness. LUNGS: Have a few scattered rhonchi. Overall, fair airflow. Has a left chest and back dressing whe re the biopsy was done. HEART: S1 and S2. ABDOMEN: Soft, nontender. No organomegaly. EXTREMITIES: There is no edema. NEUROLOGIC: Awake, alert, follows simple commands. LABORATORY DATA: Shows hemoglobin 9.4, hematocrit 27, WBC 3.8, platelet count 245. Sodium 139, pota ssium 4.2, chloride 101, bicarbonate 29, BUN 17, creatinine 0.8, glucose 91, calcium 9.4. Iron is 20 2, transferring 162, ferritin 501. AST 27, ALT 33, alkaline phosphatase 67. LDH 720. Troponin less t vazquez 0.01. Albumin 4.4. B12 is 492. Folate is 11. Chest x-ray done today shows no active disease re ported. Had a PET scan done on 06/27/2016, which suggested redemonstration of scattered opacities in the lung, more prominent at the lower lobe, demonstrating increased PTGI uptake. The shape of the opa city is nonspecific and the differential diagnosis includes granulomatous disease. Possibility of neoplasm is less. Mild diffuse, increased PTGI activity, uptake in the bone marrow of uncertain e tiology. There is also splenomegaly without evidence of any mass. His bone marrow biopsy shows mildly hypercellular marrow with maturing trilineage hematopoiesis, erythroid hyperplasia and minimum lymph oid and plasma cell infiltrate, small monoclonal lambda B cell population, no evidence of myeloid leann plasm, plasma cell myeloma or lymphoma. His D-dimer on 05/30/2016 was 0.63. In May, his blood gas w as unremarkable. C-reactive protein on 06/01/2016 was more than 15. Alpha fetoprotein 1.1. His sed r ate on 06/01/2016 was 84. RBC G6PD was 11.7. Stool for guaiac was negative. IVANA screen was negative . ANCA screen was negative. Myeloperoxidase antibody was negative. Double stranded DNA was unremark able. EB virus nuclear antigen antibody was 0.91. [place] screen was negative in May. Histoplasma ant ibody was negative. HIV 1 and HIV 2 on 05/30/2016 was negative. TB Gold test reported as indetermin ate. Microbiology: Urine culture has been negative. IMPRESSION AND PLAN: Multilobar infiltrate, status post biopsy, recurrent anemia requiring transfusi on. So far, bone marrow has been negative. Had large spleen though. LDH is high at this time. Has a high sed rate, high C-reactive protein. HIV 1 and 2 have been negative. TB Gold test has an indeterm inate probability. Does have some rhinitis, cough and low-grade fever. Pulmonary point of view, I wi ll discontinue bronchodilator for now. He is in isolation for tuberculosis. Already had biopsy done. Spoke to Dr. Zay Rivers regarding the biopsy results. Will not treat with any antibiotics. Discontinue p.r.n. nebulizer for now. Looking between tuberculosis, fungal infection. 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 For the last couple of months, he has been doing and sand and when working with the hands so need to consider organism. Will follow with you. Sid Keene MD cc: [id number] TT: 07/10/2016 00:00:00 Confirmation # [id number] Dictation # [id number] ln
--- NOTE | 2016-07-10 02:20 | CARD ---
APPROVED REPORT EKG Measurement Heart [id number] <Conclusion> Normal sinus rhythm Normal ECG
[2016-07-10] MEDS ORDERED: Bisacodyl 5mg EC Tab PO ONE (05:00)
[2016-07-10] MEDS ORDERED: Bisacodyl 5mg EC Tab PO STA (06:12)
[2016-07-10] MEDS: Dextrose 5%/0.9% NS 1,000 ML IV SCH (06:26)
--- NOTE | 2016-07-10 07:57 | CON ---
DATE: 07/09/2016 HISTORY OF PRESENT ILLNESS: This patient was seen and evaluated earlier. Discussed with the patient's father also. The patient is now in isolation for TB precautions. This 30-year-old patient with a history of probable hemolytic anemia with multiple transfusions in the past, presented to the Emergency Room with cough and shortness of breath and having a history of some fever. The patient initially had a viral fever in November then he was found to be very anemic. The patient had shortness of breath in November. He was admitted to the [facility]. Transfusion was given. He also was found to have some infection and was placed on antibiotics and steroids and he has a history of some weight loss and nearly about 15 pounds at that time. The patient subsequently had a bone marrow biopsy done and also flow cytometry. The patient has been closely followed by elevator installer apprentice, Dr. Boles. The patient recently had a PET scan done. The patient did have transfusions recently also. Denies any history of bleeding per rectum. No melena. No vomiting blood. Never had an endoscopy or colonoscopy done before. PAST MEDICAL HISTORY: As above. History of anemia, iron deficiency. SURGICAL HISTORY: Denies except the bone marrow. ALLERGIES: No known drug allergies. FAMILY HISTORY: Noncontributory. SOCIAL HISTORY: Ex-smoker. Denies alcohol use. REVIEW OF SYSTEMS: Positive as above. Other systems reviewed. PHYSICAL EXAMINATION: GENERAL: The patient is lying on the bed, not in acute distress. He is evaluated in the isolation room. VITAL SIGNS: Temperature 98.5, blood pressure 119/71, pulse 89, respirations 19 , O2 saturation 100%. HEENT: Atraumatic, anicteric. NECK: Supple. HEART: S1, S2 heard. LUNGS: Bilateral air entry present. ABDOMEN: Soft. There is no mass palpable. No tenderness. EXTREMITIES: No edema. LABORATORY DATA: Hemoglobin 9.4, hematocrit 27.3, WBC 3.8, platelets 245. Iron studies normal. Saturation in fact was high, , this could be related to recent transfusion. His C-reactive protein is elevated to very high before. IMPRESSION/PLAN: This 30-year-old patient admitted with cough, shortness of breath and yellow sputum. The patient also found to have multiple cavitary opacities in the lower lobe and a 2.5 cm cavitary nodule in the left base posteriorly and this was biopsied. The patient has this cavitary nodule in the left base posteriorly. Biopsies done before today.This 30-year-old patient with a history of anemia, hemolytic process, etiology is unclear, being closely followed by the elevator installer apprentice, had multiple transfusions also given, was found to have a cavitary lung lesion, status post biopsy done. I did speak with Dr. Boles and also with Dr. Salinas. The concern is the etiology for anemia requiring transfusions. The patient never had an endoscopy and a colonoscopy. Requested to further evaluate this GI system to rule out any GI source of blood loss in addition. I did discuss with the patient's father who was in the hospital and also the patient at length. The patient is agreeable for the procedure. He will be scheduled for an EGD and a colonoscopy in a.m. Thank you very much for allowing us to participate in the care of the patient. Sameer Tellez MD cc: [id number] TT: 07/09/2016 21:49:08 Confirmation # [id number] Dictation # [id number] dc 07/10/2016 06:57:29 MTDD
--- NOTE | 2016-07-10 08:44 | RAD ---
HISTORY: lt lung bx COMPARISON: 07/09/2016 at 9:10 a.m. FINDINGS: LUNGS: Rounded retrocardiac opacity at left base. . PLEURA: No significant pleural effusion identified, no pneumothorax apparent. CARDIOVASCULAR: Normal. OSSEOUS STRUCTURES: No significant abnormalities. VISUALIZED UPPER ABDOMEN: Normal. OTHER FINDINGS: None. IMPRESSION: No pneumothorax. Rounded retrocardiac opacity left base, nonspecific.
--- NOTE | 2016-07-10 09:15 | HP ---
The patient was seen on 07/09/2016. The patient came into the ER because of weakness. HISTORY OF PRESENT ILLNESS: A 30-year-old male has been having anemia with multiple transfusions. H is bone marrow biopsy did not show any problems. The patient sees hematology, getting blood transfus ion. He has iron deficiency anemia. He received iron IV before and feels weak, coughing and lost we ight from last 6 months, almost 15 pounds or more and came in because of the associated weakness and anemia. The patient also has multiple lung nodules. PAST MEDICAL HISTORY: As above. ALLERGIES: No known allergies. FAMILY HISTORY: Noncontributory. His father is healthy. Mother is healthy. His grandmother has [place] PD, thyroid. Otherwise negative. HOME MEDICATIONS: None except transfusions. REVIEW OF SYSTEMS: As in the present illness. PHYSICAL EXAMINATION: VITAL SIGNS: Temperature 98.9, heart rate 90, blood pressure 122/80, respirations 20, saturation 97% on room air. HEAD AND NECK: Normal. No JVD, no thyromegaly. CHEST: Clear, good entry. CARDIAC: First sound, second sound normal. ABDOMEN: Soft, nontender. EXTREMITIES: No edema. NEUROLOGIC: Normal. LABORATORY DATA: White count 3.8, hemoglobin 9.4, hematocrit 27.3, platelets 245. Chemistry shows s odium 139, potassium 4.2, chloride 101, bicarb 29, BUN 17, creatinine 0.8. The patient also had live r enzyme which is normal, AST, ALT and brody phos. Lactate dehydrogenase 720. Troponin was negative. Total protein 8.9, globulin is normal 4.5. Albumin 4.4, albumin globulin ratio is 1. B12 is 429, folate 39.4. The patient's transferrin 162 which is low, transferrin saturation 89 which is high. The patient also had a chest x-ray. Lung x-ray was insignificant. IMPRESSION AND PLAN: This 30-year-old male with weakness, history of multiple nodules, has splenomeg fallon, had serology workup which is negative, ____ which is indeterminate, came in with associated weak ness, weight loss and having associated unable to continue his work. We will admit the patient for o bservation. We will get pulmonary consult, Dr. Keene, and gastroenterology consult, Dr. Reynolds. A lso, history of pulmonary nodules. Maybe a CT lung guided biopsy for his pulmonary nodules will be h elpful and we will continue current treatment. We will give him nebulizer treatment and will follow recommendation by the consultants. Asa Salinas MD cc: [phone] TT: 07/10/2016 09:14:36 tn
[2016-07-10 10:42] LABS: INR 1.18 (0.93-1.08); PARTIAL THROMBOPLASTIN TIME 26.4 Seconds (23.7-30.8)
[2016-07-10] MEDS ORDERED: Propofol 10 mg/ml Inj (20 ML) ONE (11:59)
[2016-07-10] MEDS ORDERED: Lidocaine 1% Inj (20ml) ONE (12:01)
[2016-07-10 12:24] VITALS: TEMP 98.9
[2016-07-10] MEDS ORDERED: Sodium Chloride 0.9% 1,000 ML IV SCH (13:15)
[2016-07-10 14:34] VITALS: BP 120/71; PULSE 87; RESP 14; O2SAT 96
--- NOTE | 2016-07-10 14:41 | CP.PCM.CON ---
History of Present Illness - History of Present Illness History of Present Illness: 30 year old male with PMH of chronic anemia and small cavitary lesions in the lower lobes of both lungs came in complaining of cough and SOB with sputum production for the past 4-5 days. He has been having these symptoms intermittently since November of last year and work up has not revealed the etiology of his symptoms. He has had a bone marrow biopsy last month which was non-revelatory. He has intermittent low grade fever, no headache or dizziness, no chest pain, no blurring of vision, no nausea or vomiting, no abdominal pain, no diarrhea, no dysuria, no dysphagia. HE reiterated that the last time he was out of the country was 7 years ago to [place]. He again denies having family members or anyone living with him with tuberculosis. HE has not traveled to areas where Histoplasma is prevalent. He had a lung biopsy done yesterday. A quantiferon gold TB test was done last month was indeterminate. Infectious Diseases consult is requested to further evaluate and manage. Review of Systems - Review of Systems All systems: reviewed and no additional remarkable complaints except (as per HPI ) Past Patient History - Infectious Disease Hx of Infectious Diseases: None - Tetanus Immunizations Tetanus Immunization: Unknown - Past Medical History & Family History Past Medical History?: Yes - Past Social History Smoking Status: Former Smoker - CARDIAC Hx Cardiac Disorders: No - PULMONARY Hx Respiratory Disorders: No - NEUROLOGICAL Hx Neurological Disorder: No - HEENT Hx HEENT Problems: No - RENAL Hx Chronic Kidney Disease: No - ENDOCRINE/METABOLIC Hx Endocrine Disorders: No - HEMATOLOGICAL/ONCOLOGICAL Hx Anemia: Yes Hx Blood Transfusions: Yes - MUSCULOSKELETAL/RHEUMATOLOGICAL Hx Falls: No - PSYCHIATRIC Hx Psychophysiologic Disorder: No Hx Substance Use: No - SURGICAL HISTORY Hx Surgeries: No - ANESTHESIA Hx Anesthesia: No Hx Anesthesia Reactions: No Hx Malignant Hyperthermia: No Meds Allergies/Adverse Reactions: Allergies Allergy/AdvReac Type Severity Reaction Status Date / Time No Known Allergies Allergy Verified 07/09/16 08:11 - Medications Medications: Current Medications Acetaminophen (Tylenol 325mg Tab) 650 mg PO Q4 PRN PRN Reason: Pain, Mild (1-3) Albuterol/Ipratropium (Duoneb 3 Mg/0.5 Mg (3 Ml) Ud) 3 ml IH [id number] PRN PRN Reason: Shortness of Breath Bisacodyl (Dulcolax) 10 mg PO ONCE ONE Stop: 07/10/16 05:01 Dextrose/Sodium Chloride (Dextrose 5%/0.9% Ns 1000 Ml) 1,000 mls @ 75 mls/hr IV .[id number] Last Admin: 07/09/16 18:31 Dose: 75 mls/hr Ondansetron HCl (Zofran Inj) 4 mg IVP Q6H PRN PRN Reason: Nausea/Vomiting Oxycodone/Acetaminophen (Percocet 5/325 Mg Tab) 1 tab PO Q4H PRN PRN Reason: Pain, moderate (4-7) Stop: 07/12/16 15:40 Physical Exam - Constitutional Appears: Non-toxic, No Acute Distress - Head Exam Head Exam: NORMAL INSPECTION - ENT Exam ENT Exam: Mucous Membranes Moist - Neck Exam Neck exam: Negative for: Lymphadenopathy, Meningismus - Respiratory Exam Respiratory Exam: Decreased Breath Sounds (with crackles at the bases) - Cardiovascular Exam Cardiovascular Exam: +S1, +S2 - GI/Abdominal Exam GI & Abdominal Exam: Soft. absent: Tenderness Results - Vital Signs Recent Vital Signs: Last Vital Signs Temp 98.1 F 07/09/16 18:00 Pulse 90 07/09/16 18:00 Resp 20 07/09/16 18:00 BP 121/75 07/09/16 18:00 Pulse Ox 98 07/09/16 18:00 - Labs Result Diagrams: 07/09/16 09:00 07/09/16 09:00 Assessment & Plan - Assessment and Plan (Free Text) Plan: Assessment Bilateral pulmonary nodules/cavitary lesions in a patient with chronic anemia, splenomegaly and mesenteric lymph nodes R/O fungal, mycobacterial disease patient is S/P bone marrow biopsy which did not show leukemia or lymphoma Plan monitor off antibiotics; follow up biopsy results
--- NOTE | 2016-07-10 16:21 | CON ---
DATE: 07/10/2016 REASON FOR CONSULTATION: Anemia and bilateral pulmonary lesions. HISTORY OF PRESENT ILLNESS: The patient is a 30-year-old male known to me from last admission with p ast medical history significant for anemia, as well as lung nodules that were discovered in 12/2015, at which point [facility] and subsequently followed up with my partn er for iron deficiency. He received several iron infusions, but continued to have further symptoms. He has also lost about 15-20 pounds in the last 6 months and has been feeling fatigued and coughing. I did do a bone marrow biopsy on him on last admission and there was no evidence of lymphoma or marques kemia on the bone marrow biopsy. He currently had a PET scan done last week, which continues to reve al bilateral lung nodules and was scheduled for a CT-guided lung biopsy as an outpatient, which he is status post right now and awaiting a current GI workup, which was not done on last admission. PAST MEDICAL HISTORY: As above. ALLERGIES: No known drug allergies. SOCIAL HISTORY: Noncontributory. He is not a smoker, no alcohol use, no drug use. FAMILY HISTORY: Noncontributory. MEDICATIONS: He does not take any medications at home at this point PHYSICAL EXAMINATION: VITAL SIGNS: Reveal a temperature of 98.0, pulse of 87, respiratory rate 14, and blood pressure 120/ 71. GENERAL: The patient is a young male lying in bed, in no acute distress. HEAD AND NECK: Normocephalic, atraumatic. EYES: Pupils equal, round, reactive to light and accommodation. Extraocular muscles are intact. Th ere is some pallor. No icterus is noted. NECK: Supple with no adenopathy, no JVD, no thyromegaly. LUNGS: Decreased breath sounds bilaterally. CARDIOVASCULAR: S1, S2 are heard. ABDOMEN: Positive bowel sounds, soft, nontender, nondistended, no organomegaly is palpated. EXTREMITIES: There is no edema, clubbing, or cyanosis. ASSESSMENT AND PLAN: Young male with persistent anemia, evidence of hemolysis on blood work, and now with bilateral lung nodules. Awaiting CT-guided lung biopsy results. Possible infectious etiology, likely tuberculosis or other fungal organism. Hold off on antibiotics and hold off on steroids at t his point. Also, patient needs a complete gastrointestinal workup, which he is scheduled for. There is no evidence of iron deficiency at this point. Will hold off on any iron infusions, also, at this point. Once final diagnosis is made, the patient will likely need to be on steroids. Thank you for the consult. We will follow. Eric Boles MD cc: [id number] TT: 07/10/2016 16:20:26 Confirmation # [id number] Dictation # [id number] dn
--- NOTE | 2016-07-11 14:08 | DS ---
The patient admitted with ____, weakness. Seen by Dr. Zay Rivers, had pulmonary nodule biopsies and patient getting mycobacterial cultures and getting fungal cultures and we will see how he does that. The patient also because of his iron deficiency anemia ____ component, I will get an EGD, colonosco py by Dr. Tellez, which came back negative. The patient is stable, we will discharge home. 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 At this time, we will discharge the patient to be fol lowed up in the office for biopsy result and sputum culture results. We will discuss the case with John Clark and with Dr. Tellez and will follow up clinically. DISCHARGE DIAGNOSES: 1. Bilateral multiple pulmonary nodules, has been there for 6 months. 2. Anemia, probably hemolytic anemia with negative upper and lower endoscopy. 3. Splenomegaly. 4. History of weight loss, etiology unclear. PLAN: Discharge home. Follow up in office within a week. Asa Salinas MD cc: [phone] TT: 07/11/2016 14:07:18 sn
== END 2016-07-10 16:43 | disposition home or self-care (01) ==
LOC: ED 07:48 → ERH 10:11 → 3RNO 11:00 → 5RSO 17:34
PROVIDERS: ADMIT Internal Medicine; ATTEND Internal Medicine
DX: R91.8 Other nonspecific abnormal finding of lung field (principal); D50.9 Iron deficiency anemia, unspecified; R16.1 Splenomegaly, not elsewhere classified; R63.4 Abnormal weight loss; J31.0 Chronic rhinitis; Z82.49 Family history of ischemic heart disease and other diseases of the circulatory system; Z82.5 Family history of asthma and other chronic lower respiratory diseases; Z87.891 Personal history of nicotine dependence; K29.50 Unspecified chronic gastritis without bleeding; K20.9 Esophagitis, unspecified; K64.8 Other hemorrhoids
CPT/HCPCS: 32405; 36415; 43239; 45378; 71010; 77012; 80053; 82550; 82607; 82728; 82746; 83615; 84145; 84466; 84484; 85025; 85610; 85730; 86850; 86900; 87015; 87070; 87075; 87101; 87116; 87206; 88305; 88342; 93005; 96360; 96361; 99285; G0378; J2250; J2704; J3010; J7030; J7040; J7042